=== PATIENT | female | born 1990 | race Caucasian/White ===

== ENCOUNTER 2023-04-29 18:27 | Emergency (ER) | payer OTHER ==
[2023-04-29 18:35] VITALS: TEMP 98.5; BMI 30.2
[2023-04-29] MEDS ORDERED: PENICILLIN G BENZATHINE 1,200,000 UNIT/2 ML PFS IM ONE (20:59)
[2023-04-29 21:30] VITALS: BP 101/77; PULSE 80; RESP 18
== END 2023-04-29 21:24 | disposition home or self-care (01) ==
LOC: JERFT 18:27 → JER 18:27 → JERFT 21:24
DX: J02.0 Streptococcal pharyngitis (principal)
CPT/HCPCS: 87651; 96374; 99284-25